=== PATIENT | female | born 1955 | race Caucasian/White ===

== ENCOUNTER → 2019-12-24 | Outpatient (CLI) | payer OTHER | END | disposition home or self-care (01) | LOC: RAH 09:12 | PROVIDERS: ATTEND Orthopaedic Surgery | DX: M75.101 Unspecified rotator cuff tear or rupture of right shoulder, not specified as traumatic (principal) | CPT/HCPCS: 73221 ==

== ENCOUNTER → 2020-04-14 | Outpatient (CLI) | payer OTHER | END | disposition home or self-care (01) | LOC: SHCH 11:48 | PROVIDERS: ATTEND Internal Medicine Cardiovascular Disease | DX: R00.2 Palpitations (principal) | CPT/HCPCS: 93306 ==

== ENCOUNTER → 2020-05-14 | Outpatient (CLI) | payer OTHER | END | disposition home or self-care (01) | LOC: RAH 08:31 | PROVIDERS: ATTEND Internal Medicine | DX: Z12.31 Encounter for screening mammogram for malignant neoplasm of breast (principal) | CPT/HCPCS: 77067 ==

== ENCOUNTER → 2020-06-03 | Outpatient (CLI) | payer OTHER ==
[~2020-06-03] MED LIST: AEC81 PO; CLOP75TA14 PO; DAPA10TA PO; LEVO125T11 PO; LEVO150T11 PO; METO25TA6 PO; NITR0.4T SL; ROSU10TA28 PO; SITA1TAB6 PO
== END | disposition home or self-care (01) ==
LOC: RAH 13:50
PROVIDERS: ATTEND Internal Medicine
DX: R92.8 Other abnormal and inconclusive findings on diagnostic imaging of breast (principal); R92.2 Inconclusive mammogram; N64.89 Other specified disorders of breast
CPT/HCPCS: 76641; 77065

== ENCOUNTER → 2022-08-11 | Outpatient (CLI) | payer MEDICARE, OTHER ==
[~2022-08-11] MED LIST changes: +CLOP-31 PO; -CLOP75TA14 PO
== END | disposition home or self-care (01) ==
LOC: RAH 10:27
PROVIDERS: ATTEND Internal Medicine
DX: Z12.31 Encounter for screening mammogram for malignant neoplasm of breast (principal)
CPT/HCPCS: 77067

== ENCOUNTER → 2023-09-14 | Outpatient (CLI) | payer MEDICARE | END | disposition home or self-care (01) | LOC: RAH 10:22 | PROVIDERS: ATTEND Internal Medicine | DX: Z12.31 Encounter for screening mammogram for malignant neoplasm of breast (principal) | CPT/HCPCS: 77067 ==

== ENCOUNTER → 2023-10-13 | Outpatient (CLI) | payer MEDICARE | END | disposition home or self-care (01) | LOC: RAH 09:41 | PROVIDERS: ATTEND Internal Medicine | DX: Z01.818 Encounter for other preprocedural examination (principal); M47.814 Spondylosis without myelopathy or radiculopathy, thoracic region; I70.0 Atherosclerosis of aorta; M41.84 Other forms of scoliosis, thoracic region | CPT/HCPCS: 71045 ==

== ENCOUNTER 2023-10-27 11:00 | Observation (INO) | payer MEDICARE ==
[~2023-10-27] VITALS: Ht 165.1 cm; Wt 103.3 kg
[2023-10-28 11:11] VITALS: BP 149/73; PULSE 63; RESP 18
[2023-10-28 11:12] LABS: APPEARANCE,URINE CLEAR (CLEAR); BILIRUBIN,URINE NEGATIVE (NEGATIVE); COLOR,URINE YELLOW (YELLOW); GLUCOSE, URINE (UA) NEGATIVE (NEGATIVE); KETONES,URINE NEGATIVE (NEGATIVE); LEUKOCYTE ESTERASE ,URINE 75 Leu/uL (NEGATIVE); NITRATE,URINE NEGATIVE (NEGATIVE); OCCULT BLOOD,URINE NEGATIVE (NEGATIVE); PH,URINE 5.5 (5.0-8.0); PROTEIN,URINE 10 mg/dL (NEGATIVE)
[2023-10-28 11:17] LABS: ADD UA MICROSCOPIC YES
[2023-10-28 11:18] LABS: MUCUS,URINE RARE LPF (None Seen); RBC,URINE 0-1 /HPF (0-1); SQUAMOUS EPITHELIAL CELL,UR FEW /HPF (0-2)
[2023-10-28] MEDS ORDERED: TIRZ7.5P SQ (11:47)
[2023-10-28] MEDS ORDERED: AEC81 PO (11:47)
[2023-10-28] MEDS ORDERED: LEVO125C4 PO (11:47)
[2023-10-28] MEDS ORDERED: DILT180C77 PO (11:47)
[2023-10-28] MEDS ORDERED: VIT1CAPS47 PO (11:47)
[2023-10-28] MEDS ORDERED: INSU100V37 SQ (11:47)
[2023-10-28] MEDS ORDERED: NAPR220C15 PO (11:47)
[2023-10-28] MEDS ORDERED: ROSU10TA28 PO (11:47)
[2023-10-28] MEDS ORDERED: LEVO150C4 PO (11:47)
[2023-11-02] VITALS (27 sets, daily range): BP systolic 103–145; BP diastolic 52–81; PULSE 61–90; RESP 17–22; O2SAT 95–96
[2023-11-02] MEDS: 0.9%NACL 1000ML 1,000 ML IV ONE (06:11)
[2023-11-02] MEDS ORDERED: MIDAZOLAM HCL 1 MG/ML 2ML VIAL ONE (06:54)
[2023-11-02] MEDS ORDERED: FENTANYL CITRATE PF 50 MCG/1 ML 2ML VIAL ONE ×3 (06:54→09:42)
[2023-11-02] MEDS ORDERED: PROPOFOL 10 MG/ML 20ML VIAL IV ONE (07:02)
[2023-11-02] MEDS ORDERED: ROCURONIUM BROMIDE 10MG/1ML 5ML VL ONE ×2 (07:02→07:52)
[2023-11-02] MEDS ORDERED: ONDANSETRON 4MG INJ ONE (07:02)
[2023-11-02] MEDS ORDERED: ROPIVACAINE 0.5% 5MG/ML 30ML ONE (07:14)
[2023-11-02] MEDS ORDERED: DEXAMETHASONE SOD PHOSPHATE 10MG/ML 1ML VIAL ONE (07:15)
[2023-11-02] MEDS: CEFAZOLIN SODIUM 2 GM VIAL ONE (07:23)
[2023-11-02] MEDS: TRANEXAMIC ACID 1000MG/10ML ONE (07:40)
[2023-11-02] MEDS: ROPIVACAINE 0.5% 5MG/ML 30ML ONE (07:54)
[2023-11-02] MEDS: KETOROLAC 30MG VIAL (30MG/ML) ONE (08:25)
[2023-11-02] MEDS: TRANEXAMIC ACID 1000MG/10ML IV ONE (09:20)
[2023-11-02] MEDS: KETOROLAC 15MG/ML VIAL (15MG/ML) IV SCH (09:30)
[2023-11-02] MEDS ORDERED: POTASSIUM CHLORIDE 10% ELIXIR 20 MEQ/15 ML UDCUP PO PRN (09:30)
[2023-11-02] MEDS ORDERED: FERROUS FUMARATE 324 MG TABLET PO PRN (09:30)
[2023-11-02] MEDS ORDERED: POTASSIUM CHLORIDE 20MEQ/100ML 100 ML IV PRN (09:30)
[2023-11-02] MEDS ORDERED: KCL 20 MEQ ERTAB PO PRN (09:30)
[2023-11-02] MEDS ORDERED: DiphenhydrAMINE HCL 50 MG/ML VIAL IVP PRN (09:30)
[2023-11-02] MEDS ORDERED: TRAMADOL HCL 50 MG TABLET PO PRN (09:30)
[2023-11-02] MEDS ORDERED: ONDANSETRON 4MG INJ IVP PRN (09:30)
[2023-11-02] MEDS ORDERED: CALCIUM CARB 500MG PO PRN (09:30)
[2023-11-02] MEDS ORDERED: GLYCOPYRROLATE 0.2 MG/ML 5 ML VIAL ONE (09:41)
[2023-11-02] MEDS ORDERED: NEOSTIGMINE METHYLSULFATE 1MG/ML IV ONE (09:42)
[2023-11-02] MEDS: ONDANSETRON 4MG INJ ONE (10:31)
[2023-11-02] MEDS: MEPERIDINE-PF 25 MG/ML SYG ONE (10:32)
[2023-11-02] MEDS: KETOROLAC 15MG/ML VIAL (15MG/ML) ONE (10:32)
[2023-11-02] MEDS: ACETAMINOPHEN 1,000 MG/100 ML VIAL IV ONE (10:33)
[2023-11-02] MEDS: CEFAZOLIN SODIUM 2 GM VIAL IVPB SCH (14:08)
[2023-11-02] MEDS: GABAPENTIN 100 MG CAPSULE PO SCH (14:08)
[2023-11-02] MEDS: HYDROCODONE/ACETAMINOPHEN 5/325 MG TAB PO PRN (14:45)
[2023-11-02] MEDS: 0.9%NACL 1000ML 1,000 ML IV SCH (19:30)
[2023-11-02] MEDS: DOCUSATE SODIUM 100 MG CAP PO SCH (20:14)
[2023-11-03 04:43] VITALS: BP 129/67; PULSE 86; RESP 18
[2023-11-03 05:33] LABS: HEMATOCRIT 32.4 % (36-48); MEAN CORPUSCULAR HEMOGLOBIN 28.5 pg (27.0-33.0); MEAN CORPUSCULAR HGB CONC 32.1 g/dL (32.0-36.0); MEAN CORPUSCULAR VOLUME 88.8 fL (79-99); RED BLOOD CELL COUNT(AUTO) 3.65 MIL/uL (4.00-5.50); RED CELL DISTRIBUTION WIDTH 14.4 % (11.0-15.5); WHITE BLOOD COUNT (AUTO) 10.4 K/uL (4.8-10.8)
[2023-11-03 05:44] LABS: CREATININE 0.8 mg/dL (0.5-1.5); POTASSIUM 4.3 mmol/L (3.5-5.1)
[2023-11-03 08:00] VITALS: O2SAT 96
[2023-11-03 08:23] VITALS: BP 131/74; PULSE 85; RESP 17
[2023-11-03] MEDS: ASPIRIN 325MG EC TAB PO SCH (10:00)
[2023-11-03] MEDS: POLYETHYLENE GLYCOL 3350 17 GM POWD.PACK PO SCH (10:02)
[2023-11-03 11:38] VITALS: BP 117/63; PULSE 81; RESP 17
[2023-11-03 16:46] VITALS: BP 154/82; PULSE 86; RESP 17
[2023-11-03] MEDS: KETOROLAC 15MG/ML VIAL (15MG/ML) IV PRN (16:47)
[2023-11-03 20:00] VITALS: BP 129/61; PULSE 94; RESP 18; O2SAT 93
[2023-11-03] MEDS: CYCLOBENZAPRINE HCL 10 MG TABLET PO PRN (23:44)
[2023-11-04] VITALS: BP 133/71; PULSE 92; RESP 18
[2023-11-04 04:00] VITALS: BP 132/66; PULSE 99; RESP 16
[2023-11-04 08:00] VITALS: BP 128/70; PULSE 97; RESP 18; O2SAT 97
[2023-11-04] MEDS: INSULIN HUMULIN R 100 UNIT/ML 3ML SQ SCH (11:45)
[2023-11-04 12:00] VITALS: BP 123/84; PULSE 99; RESP 18
[2023-11-04] MEDS ORDERED: HYDR-4060 PO (12:21)
[2023-11-04] MEDS ORDERED: DOCU-116 PO (12:21)
[2023-11-04] MEDS ORDERED: CYCL-309 PO (12:21)
[2023-11-04] MEDS ORDERED: ASPI-891 PO (12:21)
[2023-11-04 16:00] VITALS: BP 129/74; PULSE 87; RESP 18
[2023-11-04] MEDS ORDERED: ATORVASTATIN 20 MG TABLET PO SCH (21:00)
[2023-11-04] MEDS ORDERED: DILTIAZEM 180MG SR CAP PO SCH (21:00)
[2023-11-04] MEDS ORDERED: [UNRECOGNIZED DRUG - OTHER] PO SCH (21:00)
[2023-11-05] MEDS ORDERED: INSULIN GLARGINE 100 UNITS/ML 10 ML VIAL SQ SCH (09:00)
[2023-11-05] MEDS ORDERED: LEVOTHYROXINE SODIUM 150 MCG PO SCH (09:00)
[2023-11-05] MEDS ORDERED: LEVOTHYROXINE SODIUM 125 MCG PO SCH (09:00)
[2023-11-05] MEDS ORDERED: BISACODYL 10 MG SUPP.RECT RC PRN (09:30)
[2023-11-11] MEDS ORDERED: TIRZEPATIDE 7.5 MG SQ SCH (09:00)
== END 2023-11-04 19:00 | disposition home health service (06) ==
LOC: DAHIP 11-02 05:56 → 4DH 11-02 11:15
PROVIDERS: ADMIT Student in an Organized Health Care Education/Training Program; ATTEND Student in an Organized Health Care Education/Training Program
DX: M17.12 Unilateral primary osteoarthritis, left knee (principal); M25.562 Pain in left knee; D62 Acute posthemorrhagic anemia; I25.10 Atherosclerotic heart disease of native coronary artery without angina pectoris; E11.9 Type 2 diabetes mellitus without complications; E78.5 Hyperlipidemia, unspecified; E03.9 Hypothyroidism, unspecified; E66.9 Obesity, unspecified; I48.0 Paroxysmal atrial fibrillation; Z68.37 Body mass index [BMI] 37.0-37.9, adult; Z79.4 Long term (current) use of insulin; Z79.899 Other long term (current) drug therapy; Z79.82 Long term (current) use of aspirin; Z90.710 Acquired absence of both cervix and uterus
CPT/HCPCS: 87088; 84134; 86140; 81001; 36415 ×2; 87641; 96365; 96366; 96375; 27447; 82948 ×5; 73560; 97161; 97116 ×5; 97530 ×10; 96376 ×2; 80048; 85027; G0378 ×51; G0379; A4663; A4215 ×2; J3010 ×3; J3490 ×5; J1100; J7030; J2250; J2704; J2405 ×2; J1885 ×6; J2710; J2175; J2795 ×2; J0690 ×3; C1713 ×2; G0168; C1776 ×2; A4930; A4649 ×2; A6255; A5120; A4223; A4222; A4221; J1815

== ENCOUNTER → 2024-10-11 | Outpatient (CLI) | payer MEDICARE ==
[~2024-10-11] MED LIST changes: -AEC81 PO; +ASPI-891 PO; -CLOP-31 PO; +CYCL-309 PO; -DAPA10TA PO; +DILT180C77 PO; +DOCU-116 PO; +HYDR-4060 PO; +INSU100V37 SQ; +LEVO125C4 PO; -LEVO125T11 PO; +LEVO150C4 PO; -LEVO150T11 PO; -METO25TA6 PO; +NAPR220C15 PO; -NITR0.4T SL; -ROSU10TA28 PO; +ROSU10TA72 PO; -SITA1TAB6 PO; +TIRZ7.5P SQ; +VIT1CAPS47 PO
--- NOTE | 2024-10-11 09:58 | HMCIMG ---
DEXA BONE DENSITY SURVEY HISTORY: Menopause COMPARISON: None FINDINGS: Bone densitometry study was performed. Bone mineral density of the lumbar spine is 1.066 gram per centimeter square which corresponds to a T score of 0.2 and a Z score of 2.2. Bone mineral density of the left hip is 0.972 grams per centimeter square which corresponds to a T score of 0.2 and a Z score of 1.6. IMPRESSION: 1. Normal bone mineral density of the lumbar spine and left hip.
--- NOTE | 2024-10-11 10:29 | HMCIMG ---
MAMMO SCREENING BILATERAL HISTORY: Screening mammogram. COMPARISON: 09/14/2023 TECHNIQUE: Bilateral screening mammogram with CAD was performed with craniocaudal and mediolateral oblique projections. FINDINGS: There are scattered areas of fibroglandular density. There is no evidence of a dominant mass, or suspicious microcalcification. There is no evidence of nipple retraction or skin thickening. IMPRESSION: 1. Stable mammogram. Patient was entered into a reminder system with a target due date for their next mammogram. BI-RADS: CATEGORY 2: BENIGN FINDINGS Recommend monthly self breast exam as well as annual clinical examination. A negative x-ray should not delay biopsy if a dominant or clinically suspicious mass is present, since 8-10% of cancers are not identified by mammography. Dense breasts particularly, may obscure an underlying neoplasm. Some of these may be detected clinically and therefore, clinical examination is an essential part of breast evaluation.
== END | disposition home or self-care (01) ==
LOC: RAH 08:39
PROVIDERS: ATTEND Internal Medicine
DX: Z12.31 Encounter for screening mammogram for malignant neoplasm of breast (principal); R92.323 Mammographic fibroglandular density, bilateral breasts; N95.9 Unspecified menopausal and perimenopausal disorder
CPT/HCPCS: 77067; 77080